=== PATIENT | female | born 1970 | race Caucasian/White ===

== ENCOUNTER 2017-07-27 05:30 | Observation (INO) | payer OTHER ==
[2017-07-27] MEDS ORDERED: ASPIRIN 81 MG PO STA (05:47)
[2017-07-27] MEDS ORDERED: NITROGLYCERIN OINT 1 INCH/GM PACKET TOPICAL STA (05:47)
--- NOTE | 2017-07-27 05:51 | ED ---
General Adult HPI - General Source: patient, RN notes reviewed Mode of arrival: ambulatory Limitations: no limitations <Luca Finn - Last Filed: 07/27/17 06:56> <Lawrence Oropeza - Last Filed: 07/27/17 07:55> - General Chief complaint: Chest Pain Stated complaint: chest pain Time Seen by Provider: 07/27/17 05:30 - History of Present Illness Initial comments: This is a 46 her old female presents emergency department with past medical history significant for smoking. Patient comes in today complaining of chest pain. Patient states a few minutes before 5:00 this morning she woke up and felt significant chest pressure. Patient states the pain does not radiate anywhere it appears to be a little more on the right side than the left. Patient states she is mildly short of breath. Patient states taking a deep breath increases the pain. Patient denies any diaphoretic episodes. Patient states she has no abdominal pain there's no nausea vomiting or diarrhea. Patient denies any recent fever chills or cough. She states she is adopted so she does not know if she has any family history. Patient denies lightheadedness dizziness or near syncopal episode. Patient states the chest pain continues at this time. (Luca Finn) - Related Data Home Medications Medication Instructions Recorded Confirmed Multivitamin [Multivitamins Adult 2 tab PO DAILY 09/28/15 07/27/17 Gummies] Allergies Allergy/AdvReac Type Severity Reaction Status Date / Time codeine Allergy Severe Rash/Hives Verified 07/27/17 07:43 Penicillins Allergy Rash/Hives Verified 07/27/17 07:43 Review of Systems ROS Other: All systems not noted in ROS Statement are negative. <Luca Finn - Last Filed: 07/27/17 06:56> ROS Other: All systems not noted in ROS Statement are negative. <Lawrence Oropeza - Last Filed: 07/27/17 07:55> ROS Statement: Those systems with pertinent positive or pertinent negative responses have been documented in the HPI. Past Medical History Past Medical History: COPD, GERD/Reflux Additional Past Medical History / Comment(s): constipation, uterine fibroids, heavy and painful menses,urinary frequency,hx anemia. OB history: 4 previous vaginal deliveries History of Any Multi-Drug Resistant Organisms: MRSA Date of last positivie culture/infection: ?2008 MDRO Source:: lower abd scratch Past Surgical History: Hysterectomy, Orthopedic Surgery, Tubal Ligation Additional Past Surgical History / Comment(s): ORIF lt hand and wrist Past Anesthesia/Blood Transfusion Reactions: Motion Sickness Additional Past Anesthesia/Blood Transfusion Reaction / Comment(s): unk family hx, no hx blood transfusion Past Psychological History: Anxiety Smoking Status: Current every day smoker Past Alcohol Use History: Occasional Past Drug Use History: Marijuana - Past Family History Father History Unknown: Yes Additional Family Medical History / Comment(s): adopted Mother History Unknown: Yes Additional Family Medical History / Comment(s): adopted <Luca Finn - Last Filed: 07/27/17 06:56> General Exam Limitations: no limitations <Luca Finn - Last Filed: 07/27/17 06:56> <Lawrence Oropeza - Last Filed: 07/27/17 07:55> - General Exam Comments Initial Comments: GENERAL: Patient is well-developed and well-nourished. Patient is nontoxic and well- hydrated and is in mild distress. ENT: Neck is soft and supple. No significant lymphadenopathy is noted. Neck has full range of motion without eliciting any pain. EYES: The sclera were anicteric and conjunctiva were pink and moist. Extraocular movements were intact and pupils were equal round and reactive to light. Eyelids were unremarkable. PULMONARY: Unlabored respirations. Good breath sounds bilaterally. No audible rales rhonchi or wheezing was noted. CARDIOVASCULAR: There is a regular rate and rhythm without any murmurs gallops or rubs. ABDOMEN: Soft and nontender with normal bowel sounds. No palpable organomegaly was noted. There is no palpable pulsatile mass. SKIN: Skin is clear with no lesions or rashes and otherwise unremarkable. NEUROLOGIC: Patient is alert and oriented x3. Cranial nerves II through XII are grossly intact. Motor and sensory are also intact. Normal speech, volume and content. Symmetrical smile. MUSCULOSKELETAL Normal extremities with adequate strength and full range of motion. No lower extremity swelling or edema. No calf tenderness. LYMPHATICS: No significant lymphadenopathy is noted PSYCHIATRIC: Normal psychiatric evaluation. (Luca Finn) Vital Signs 07/27/17 07/27/17 05:31 06:56 Temperature 97.2 F L Pulse Rate 83 Respiratory 16 20 Rate Blood Pressure 127/91 Blood Pressure 127/64 [Left Arm] Blood Pressure 131/85 [Right Arm] O2 Sat by Pulse 97 99 Oximetry EKG Findings - EKG Comments: EKG Findings:: EKG obtained at 0702 normal sinus rhythm, rate of 68, RI interval 150, QRS duration 68, QTC 435, no significant change compared to previous EKG, no ST segment elevation or depression. <Lawrence Oropeza - Last Filed: 07/27/17 07:55> Medical Decision Making - Lab Data Result diagrams: 07/27/17 05:40 07/27/17 05:40 <Luca Finn - Last Filed: 07/27/17 06:56> - Lab Data Result diagrams: 07/27/17 05:40 07/27/17 05:40 <Lawrence Oropeza - Last Filed: 07/27/17 07:55> - Medical Decision Making EKG shows normal sinus rhythm at 76 bpm RI interval is 128 QRS is 64 QT interval 378 QTC is 425. Patient's EKG shows no ST segment elevation or depression or T wave abnormalities are noted. Dr. Oropeza will be taking over the care of this patient at 7 AM (Luca Finn) CT angiography pending at the time of sign out, this is negative for PE, there is a 1 cm pulmonary nodule, suspect granuloma and 1.4; hepatic lesion. These results are conveyed to the patient for 6 months follow-up. No findings to explain the patient's pain. Patient will be placed in observation for serial cardiac enzymes and cardiology consult. (Lawrence Oropeza) - Lab Data Lab Results 07/27/17 07/27/17 07/27/17 Range/Units 05:40 05:40 05:40 WBC 16.1 H (3.8-10.6) k/uL RBC 5.01 (3.80-5.40) m/uL Hgb 16.0 (11.4-16.0) gm/dL Hct 49.9 H (34.0-46.0) % MCV 99.6 (80.0-100.0) fL MCH 32.0 (25.0-35.0) pg MCHC 32.1 (31.0-37.0) g/dL RDW 13.1 (11.5-15.5) % Plt Count 356 (150-450) k/uL Neutrophils % 66 % Lymphocytes % 21 % Monocytes % 4 % Eosinophils % 7 % Basophils % 0 % Neutrophils # 10.7 H (1.3-7.7) k/uL Lymphocytes # 3.4 (1.0-4.8) k/uL Monocytes # 0.7 (0-1.0) k/uL Eosinophils # 1.2 H (0-0.7) k/uL Basophils # 0.1 (0-0.2) k/uL PT (9.0-12.0) sec INR (<1.2) APTT (22.0-30.0) sec D-Dimer (<0.60) mg/L FEU Sodium 142 (137-145) mmol/L Potassium 4.3 (3.5-5.1) mmol/L Chloride 106 (98-107) mmol/L Carbon Dioxide 22 (22-30) mmol/L Anion Gap 14 mmol/L BUN 16 (7-17) mg/dL Creatinine 0.80 (0.52-1.04) mg/dL Est GFR (CKD-EPI)AfAm >90 (>60 ml/min/1.73 sqM) Est GFR (CKD-EPI)NonAf 89 (>60 ml/min/1.73 sqM) Glucose 100 H (74-99) mg/dL Calcium 9.9 (8.4-10.2) mg/dL Magnesium 2.1 (1.6-2.3) mg/dL Total Bilirubin 0.2 (0.2-1.3) mg/dL AST 19 (14-36) U/L ALT 29 (9-52) U/L Alkaline Phosphatase 64 (38-126) U/L Total Creatine Kinase 55 (30-135) U/L CK-MB (CK-2) 0.3 (0.0-2.4) ng/mL CK-MB (CK-2) Rel Index 0.5 Troponin I <0.012 (0.000-0.034) ng/mL Total Protein 7.2 (6.3-8.2) g/dL Albumin 4.3 (3.5-5.0) g/dL 07/27/17 07/27/17 Range/Units 05:40 05:40 WBC (3.8-10.6) k/uL RBC (3.80-5.40) m/uL Hgb (11.4-16.0) gm/dL Hct (34.0-46.0) % MCV (80.0-100.0) fL MCH (25.0-35.0) pg MCHC (31.0-37.0) g/dL RDW (11.5-15.5) % Plt Count (150-450) k/uL Neutrophils % % Lymphocytes % % Monocytes % % Eosinophils % % Basophils % % Neutrophils # (1.3-7.7) k/uL Lymphocytes # (1.0-4.8) k/uL Monocytes # (0-1.0) k/uL Eosinophils # (0-0.7) k/uL Basophils # (0-0.2) k/uL PT 9.6 (9.0-12.0) sec INR 1.0 (<1.2) APTT 26.9 (22.0-30.0) sec D-Dimer 0.42 (<0.60) mg/L FEU Sodium (137-145) mmol/L Potassium (3.5-5.1) mmol/L Chloride (98-107) mmol/L Carbon Dioxide (22-30) mmol/L Anion Gap mmol/L BUN (7-17) mg/dL Creatinine (0.52-1.04) mg/dL Est GFR (CKD-EPI)AfAm (>60 ml/min/1.73 sqM) Est GFR (CKD-EPI)NonAf (>60 ml/min/1.73 sqM) Glucose (74-99) mg/dL Calcium (8.4-10.2) mg/dL Magnesium (1.6-2.3) mg/dL Total Bilirubin (0.2-1.3) mg/dL AST (14-36) U/L ALT (9-52) U/L Alkaline Phosphatase (38-126) U/L Total Creatine Kinase (30-135) U/L CK-MB (CK-2) (0.0-2.4) ng/mL CK-MB (CK-2) Rel Index Troponin I (0.000-0.034) ng/mL Total Protein (6.3-8.2) g/dL Albumin (3.5-5.0) g/dL Disposition <Luca Finn - Last Filed: 07/27/17 06:56> Is patient prescribed a controlled substance at d/c from ED?: No Decision to Admit Reason: Admit from EC Decision Date: 07/27/17 Decision Time: 07:55 <Lawrence Oropeza - Last Filed: 07/27/17 07:55> Clinical Impression: Chest pain Disposition: ADMITTED IP TO THIS HOSP Condition: Stable Referrals: German De La Cruz DO [Primary Care Provider] - 1-2 days
[2017-07-27 06:04] LABS: Basophils # (A) 0.1 k/uL (0-0.2); Basophils % (A) 0 %; Eosinophils # (A) 1.2 k/uL (0-0.7); Eosinophils % (A) 7 %; HCT 49.9 % (34.0-46.0); Lymphocytes # (A) 3.4 k/uL (1.0-4.8); Lymphocytes % (A) 21 %; MCHC 32.1 g/dL (31.0-37.0); MCV 99.6 fL (80.0-100.0); Mean Platelet Volume 6.7; Monocytes # (A) 0.7 k/uL (0-1.0); Monocytes % (A) 4 %; Neutrophils # (A) 10.7 k/uL (1.3-7.7); Neutrophils % (A) 66 %; Platelet Count 356 k/uL (150-450); RBC 5.01 m/uL (3.80-5.40); RDW 13.1 % (11.5-15.5); WBC 16.1 k/uL (3.8-10.6)
[2017-07-27 06:12] LABS: Partial Thromboplastin Time 26.9 sec (22.0-30.0); Prothrombin Time 9.6 sec (9.0-12.0)
[2017-07-27 06:15] LABS: ALT 29 U/L (9-52); AST 19 U/L (14-36); Albumin 4.3 g/dL (3.5-5.0); Alkaline Phosphatase 64 U/L (38-126); Anion Gap 14 mmol/L; Blood Urea Nitrogen 16 mg/dL (7-17); Calcium 9.9 mg/dL (8.4-10.2); Carbon Dioxide 22 mmol/L (22-30); Chloride 106 mmol/L (98-107); Glucose 100 mg/dL (74-99); Magnesium 2.1 mg/dL (1.6-2.3); Potassium 4.3 mmol/L (3.5-5.1); Sodium 142 mmol/L (137-145); Total Bilirubin 0.2 mg/dL (0.2-1.3); Total Protein 7.2 g/dL (6.3-8.2)
[2017-07-27 06:29] LABS: Creatine Kinase 55 U/L (30-135)
[2017-07-27 06:42] LABS: Creatine Kinase MB 0.3 ng/mL (0.0-2.4); Troponin I <0.012 ng/mL (0.000-0.034)
--- NOTE | 2017-07-27 06:50 | XR ---
EXAMINATION TYPE: XR chest 2V DATE OF EXAM: 07/27/2017 COMPARISON: 09/28/2015 HISTORY: Chest pain TECHNIQUE: Frontal and lateral views of the chest are obtained. FINDINGS: Heart and mediastinum are normal. Lungs are clear. Diaphragm is normal. Bony thorax appear s normal. IMPRESSION: Normal chest. No change.
[2017-07-27] MEDS ORDERED: KETOROLAC 60 MG/2 ML VIAL IVP STA (06:51)
[2017-07-27] MEDS ORDERED: RX INFO: IV CONTRAST WAS GIVEN 1 EACH MISC MISCELLANE PRN (06:55)
--- NOTE | 2017-07-27 07:48 | CT ---
EXAMINATION TYPE: CT chest angio for PE DATE OF EXAM: 07/27/2017 COMPARISON: NONE HISTORY: 46-year-old female Chest pain TECHNIQUE: Contiguous axial scanning of the chest performed with IV Contrast, patient injected with 5 9 mL of Isovue 370. Coronal/sagittal MIP reconstructions performed. CT DLP: 136.5 mGycm Automated exposure control for dose reduction was used. FINDINGS: Heart is normal size without pericardial effusion. Borderline ectatic ascending aorta 3.6 cm. Conventional arch vessel branching anatomy. Prominent but nonenlarged 8mm superior right mediastinal lymph node. Borderline enlarged 1 cm right h ilar lymph node. Satisfactory opacification of the pulmonary arterial system without evidence for pulmonary embolus. Mild diffuse bronchial wall thickening and mild upper lobe centrilobular emphysema. Prominent depende nt atelectasis along the posterior lungs. There is a 1 cm nodule at the posteromedial right lung base with central calcification, likely a calc ified granuloma. This can be reassessed in 6 months time. No consolidation or pleural effusion. Tiny hiatal hernia. 1.4 cm hypodense lesion right hepatic dome is indeterminate, probably a cyst. Bones: No osseous destructive process. IMPRESSION: 1. NO EVIDENCE FOR PULMONARY EMBOLUS. 2. COPD WITH MILD EMPHYSEMA. 3. A 1 CM RIGHT BASILAR PULMONARY NODULE CONTAINS A CENTRAL CALCIFICATION. SUSPECT A PARTIALLY CALCIF IED GRANULOMA. 6 MONTH FOLLOW-UP CT RECOMMENDED TO REASSESS. 4. INDETERMINATE 1.4 CM LESION IN THE RIGHT HEPATIC DOME IS SUSPECTED TO REPRESENT A CYST AND CAN ALS O BE REASSESSED AT THE PATIENT'S FOLLOW-UP.
[2017-07-27] MEDS ORDERED: ONDANSETRON 4 MG/2 ML VIAL IVP PRN (07:52)
[2017-07-27] MEDS ORDERED: NALOXONE 0.4 MG/ML 1 ML VIAL IV PRN (07:52)
[2017-07-27] MEDS: IBUPROFEN 400 MG TAB PO PRN ×2 (08:57→16:18)
[2017-07-27 11:16] VITALS: BMI 22.8
[2017-07-27 12:08] LABS: Creatine Kinase 45 U/L (30-135)
[2017-07-27 12:20] LABS: Creatine Kinase MB <0.2 ng/mL (0.0-2.4); Troponin I <0.012 ng/mL (0.000-0.034)
--- NOTE | 2017-07-27 13:49 | HP ---
HISTORY AND PHYSICAL DATE OF ADMISSION: July 27, 2017. DATE OF SERVICE: 07/27/17 PRESENTING COMPLAINT: Chest pressure. HISTORY OF PRESENTING COMPLAINT: Pleasant 46 -year-old patient that is here with her . Follows with Dr. De La Cruz. The patient in the past did have GERD, resolved. Anxiety that is well controlled. The patient around 4 a.m. this morning, felt a heaviness across the chest, felt like a dull pressure. There was no fever, no cough, no shortness of breath, but did hurt a little bit with deep breathing. Some nausea was present. Denies any swelling of the legs. PE was ruled out in the ER. The patient does smoke occasionally. Was admitted because of the chest pain. The patient is relatively active with no other major medical problems. REVIEW OF SYSTEMS: CONSTITUTIONAL: None. HEENT: None. RESPIRATORY: None. CARDIOVASCULAR: As above. Gastrointestinal as above. Genitourinary: None. Musculoskeletal none. Dermatological and hematologic, lymphatic none. Psychiatry none. Neurological none. PAST MEDICAL HISTORY: GERD, corrected; anemia. PAST SURGICAL HISTORY: Hysterectomy, orthopedic surgery, tubal ligation, ORIF of the left hand and wrist, four vaginal deliveries. SOCIAL HISTORY: The patient smokes occasionally. . Alcohol rarely. FAMILY HISTORY: Patient is adopted. HOME MEDICATIONS: Multivitamin 2 tablets p.o. daily. ALLERGIES: CODEINE AND PENICILLIN. PHYSICAL EXAMINATION: Vital signs on presentation, temperature 97.2 pulse 83, respiratory rate 16, blood pressure 127/91, pulse ox 97% on room air. General appearance: Average built. Sitting up comfortable. EYES: Pupils are equal. Conjunctivae normal. HEENT external appearance of nose and ears normal. Oral cavity normal. Neck JVD not raised. Mass not palpable. Respiratory effort lungs are clear. Cardiovascular 1st and 2nd sounds normal. No edema. ABDOMEN: Soft, nontender. Liver and spleen not palpable. Lymphatics: No lymph nodes palpable in the neck and axilla. PSYCHIATRY: Alert and oriented x3. Mood and affect normal. Neurological: Pupils are equal. Cranial nerves grossly intact. Power and sensation grossly: Intact. Musculoskeletal: Patient has got tenderness around the costochondral junction, especially on the right side. INVESTIGATIONS: White count 16.1, hemoglobin, potassium 4.3. Troponin times two negative. EKG normal sinus rhythm. Chest x-ray, normal chest. Chest CTA shows pulmonary nodule 1 cm with central calcification. No PE. ASSESSMENT: 1. Anterior chest wall pain with reproducible pain at the costochondral junctions, most likely acute costochondritis. Will get a Cardiology opinion. 2. Mild chronic nicotine dependence, patient does smoke cigarettes occasionally. PLAN: Patient advised against smoking. Once cardiology causes ruled out, will give patient anti-inflammatory. Care was discussed with the patient. at the bedside. Questions were answered. Cardiology was consulted. Copy to Dr. De La Cruz. MMODL / IJN: [id number] /
--- NOTE | 2017-07-27 15:15 | P.CRDCN ---
History of Present Illness History of present illness: Mrs. Devine is a pleasant 46 showed female past medical history significant for gastroesophageal reflux disease, anxiety and chronic tobacco abuse. 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 We've been asked to see her in consultation for complaints of chest pain. She states she woke up around 4:00 this morning with a tight pain in the midsternal region she denies radiation to the arms back neck or jaw. She felt as though she was mildly short of breath more so that her worse when she took a deep breath. She denies associated nausea, palpitations, dizziness, vomiting or diaphoresis. The pain persisted for about an hour before she decided to come in for evaluation. She still complains of a dull pain that is worse with movement and was relieved just by sitting still and not moving around or taking a deep breath. EKG on arrival reveals sinus mechanism with no acute ST or T wave abnormalities noted. Chest x-ray negative for acute cardiopulmonary process. Laboratory data reviewed, WBC 16.1, hemoglobin 16.0, platelets 356, d-dimer 0.42, sodium 142, potassium 4.3, magnesium 2.1, creatinine 0.8, cardiac enzymes negative 2. CT and chest reveals no evidence of pulmonary embolism with evidence of COPD with a pulmonary nodule recommend 6 month follow-up. She takes no daily medications there are no old records to review. Review of Systems At the time of my exam: CONSTITUTIONAL: Denies fever. Denies chills. EYES: Denies blurred vision. Denies vision changes. Denies eye pain. EARS, NOSE, MOUTH & THROAT: Denies headache. Denies sore throat. Denies ear pain. CARDIOVASCULAR: Complains of pleuritic chest pain worse with movement and deep inspiration. Denies shortness of breath. Denies orthopnea. Denies PND. Denies palpitations. RESPIRATORY: Denies cough. GASTROINTESTINAL: Denies abdominal pain. Denies diarrhea. Denies constipation. Denies nausea. Denies vomiting. MUSCULOSKELETAL: Denies myalgias. INTEGUMENTARY: Denies pruitis. Denies rash. NEUROLOGIC: Denies numbness. Denies tingling. Denies weakness. PSYCHIATRIC: Denies anxiety. Denies depression. ENDOCRINE: Denies fatigue. Denies weight change. Denies polydipsia. Denies polyurina. GENITOURINARY: Denies burning, hematuria or urgency with micturation. HEMATOLOGIC: Denies history of anemia. Denies bleeding. Past Medical History Past Medical History: GERD/Reflux Additional Past Medical History / Comment(s): constipation, uterine fibroids, heavy and painful menses,urinary frequency,hx anemia. OB history: 4 previous vaginal deliveries History of Any Multi-Drug Resistant Organisms: MRSA Date of last positivie culture/infection: ?2008 MDRO Source:: lower abd scratch Past Surgical History: Hysterectomy, Orthopedic Surgery, Tubal Ligation Additional Past Surgical History / Comment(s): ORIF lt hand and wrist Past Anesthesia/Blood Transfusion Reactions: Motion Sickness Additional Past Anesthesia/Blood Transfusion Reaction / Comment(s): unk family hx, no hx blood transfusion Past Psychological History: Anxiety Smoking Status: Current every day smoker Past Alcohol Use History: Occasional Additional Past Alcohol Use History / Comment(s): started smoking 1990 1 pack per 3 days, now smoking 3 cigarettes or less per day Past Drug Use History: Marijuana - Past Family History Father History Unknown: Yes Additional Family Medical History / Comment(s): adopted Mother History Unknown: Yes Additional Family Medical History / Comment(s): adopted Medications and Allergies Home Medications Medication Instructions Recorded Confirmed Type Multivitamin [Multivitamins Adult 2 tab PO DAILY 09/28/15 07/27/17 History Gummies] Allergies Allergy/AdvReac Type Severity Reaction Status Date / Time codeine Allergy Severe Rash/Hives Verified 07/27/17 07:43 Penicillins Allergy Rash/Hives Verified 07/27/17 07:43 Physical Exam Vitals: Vital Signs Temp Pulse Pulse Pulse Resp BP BP 07/27/17 12:00 98.2 F 94 16 07/27/17 10:14 97.6 F 81 16 07/27/17 09:59 98.3 F 78 16 109/66 07/27/17 08:59 82 16 07/27/17 06:56 20 127/64 07/27/17 05:31 97.2 F L 83 16 127/91 BP Pulse Ox 07/27/17 12:00 91/69 96 07/27/17 10:14 112/77 97 07/27/17 09:59 100 07/27/17 08:59 105/73 96 07/27/17 06:56 131/85 99 07/27/17 05:31 97 Intake and Output 07/27/17 07/27/17 07/27/17 06:59 14:59 22:59 Intake Total 250 Balance 250 Intake: Oral 250 Other: Voiding Method Toilet Weight 50.802 kg 54.9 kg Blood pressure 91/69 heart rate 94 afebrile maintaining oxygen saturation on room air GENERAL: This is a 46-year-old female in no apparent distress at the time of my examination. HEENT: Head is atraumatic, normocephalic. Pupils are equal, round. Sclerae anicteric. Conjunctivae are clear. Mucous membranes of the mouth are moist. Neck is supple. There is no jugular venous distention. No carotid bruit is heard. LUNGS: Clear to auscultation no wheezes, rales or rhonchi. No chest wall tenderness is noted on palpation or with deep breathing. HEART: Regular rate and rhythm without murmurs, rubs or gallops. S1 and S2 heard. ABDOMEN: Soft, nontender. Bowel sounds are heard. No organomegaly noted. EXTREMITIES: No evidence of peripheral edema and no calf tenderness noted. VASCULAR: Radial and dorsalis pedis pulses palpated, no evidence of clubbing. NEUROLOGIC: Patient is awake, alert and oriented x3. Results 07/27/17 05:40 07/27/17 05:40 Cardiac Enzymes 07/27/17 07/27/17 07/27/17 Range/Units 05:40 05:40 11:27 AST 19 (14-36) U/L CK-MB (CK-2) 0.3 <0.2 (0.0-2.4) ng/mL Troponin I <0.012 <0.012 (0.000-0.034) ng/mL Coagulation 07/27/17 Range/Units 05:40 PT 9.6 (9.0-12.0) sec APTT 26.9 (22.0-30.0) sec CBC 07/27/17 Range/Units 05:40 WBC 16.1 H (3.8-10.6) k/uL RBC 5.01 (3.80-5.40) m/uL Hgb 16.0 (11.4-16.0) gm/dL Hct 49.9 H (34.0-46.0) % Plt Count 356 (150-450) k/uL Comprehensive Metabolic Panel 07/27/17 Range/Units 05:40 Sodium 142 (137-145) mmol/L Potassium 4.3 (3.5-5.1) mmol/L Chloride 106 (98-107) mmol/L Carbon Dioxide 22 (22-30) mmol/L BUN 16 (7-17) mg/dL Creatinine 0.80 (0.52-1.04) mg/dL Glucose 100 H (74-99) mg/dL Calcium 9.9 (8.4-10.2) mg/dL AST 19 (14-36) U/L ALT 29 (9-52) U/L Alkaline Phosphatase 64 (38-126) U/L Total Protein 7.2 (6.3-8.2) g/dL Albumin 4.3 (3.5-5.0) g/dL Current Medications Generic Name Dose Route Start Last Admin Trade Name Freq PRN Reason Stop Dose Admin Aspirin 325 mg 07/28/17 09:00 Aspirin PO DAILY ESTEFANIA Ibuprofen 400 mg 07/27/17 07:52 07/27/17 08:57 Motrin PO 400 mg Q6HR PRN Administration Mild Pain or Fever > 100.5 Miscellaneous Information 1 each 07/27/17 06:55 Rx Info: Iv Contrast Was Given MISCELLANE 07/29/17 06:55 DAILY PRN Per Protocol Naloxone HCl 0.2 mg 07/27/17 07:52 Narcan IV Q2M PRN Opioid Reversal Ondansetron HCl 4 mg 07/27/17 07:52 Zofran IVP Q8HR PRN Nausea And Vomiting Intake and Output 07/27/17 07/27/17 07/27/17 06:59 14:59 22:59 Intake Total 250 Balance 250 Intake: Oral 250 Other: Voiding Method Toilet Weight 50.802 kg 54.9 kg Patient Weight 07/28/17 06:59 Weight 54.9 kg 07/27/17 05:40 07/27/17 05:40 Assessment and Plan Assessment: ASSESSMENT 1. Chest pain, atypical. Pleuritic in nature. 2. Gastroesophageal reflux disease 3. Anxiety 4. Chronic nicotine dependence PLAN Obtain 2-D echocardiogram and Doppler study to assess cardiac structure and function. Continue to obtain serial cardiac enzymes to rule out an acute coronary event. Thank you kindly for this consultation. Nurse Practitioner note has been reviewed, I agree with a documented findings and plan of care. Patient was seen and examined.
[2017-07-27] MEDS ORDERED: ACETAMINOPHEN TAB 325 MG TAB PO PRN (15:50)
[2017-07-27 18:34] LABS: Creatine Kinase 40 U/L (30-135)
[2017-07-27 18:46] LABS: Creatine Kinase MB <0.2 ng/mL (0.0-2.4); Troponin I <0.012 ng/mL (0.000-0.034)
--- NOTE | 2017-07-27 18:47 | ECHOF ---
Referral Reason:Chest pain MEASUREMENTS -------- HEIGHT: 154.9 cm WEIGHT: 54.9 kg BP: 91/69 RVIDd: 2.8 cm (< 3.3) IVSd: 0.8 cm (0.6 - 1.1) LVIDd: 3.3 cm (3.9 - 5.3) LVPWd: 1.1 cm (0.6 - 1.1) IVSs: 1.4 cm LVIDs: 2.4 cm LVPWs: 1.4 cm LA Diam: 2.4 cm (2.7 - 3.8) LAESV Index (A-L): 14.98 ml/m Ao Diam: 3.2 cm (2.0 - 3.7) AV Cusp: 1.7 cm (1.5 - 2.6) MV EXCURSION: 12.755 mm (> 18.000) MV EF SLOPE: 79 mm/s (70 - 150) EPSS: 0.4 cm MV E Bruno: 0.72 m/s MV DecT: 208 ms MV A Bruno: 0.72 m/s MV E/A Ratio: 1.00 AR PHT: 717 ms FINDINGS -------- Sinus rhythm. This was a technically good study. The left ventricular size is normal. Left ventricular wall thickness is normal. Overall left vent ricular systolic function is normal with, an EF between 55 - 60 %. The right ventricle is normal in size. Normal LA size by volume 22+/-6 ml/m2. The right atrium is normal in size. There is mild aortic regurgitation. The mitral valve is normal. No mitral regurgitation. Trace tricuspid regurgitation present. The pulmonic valve was not well visualized. The aortic root size is normal. Normal inferior vena cava with normal inspiratory collapse consistent with estimated right atrial pre ssure of 5 mmHg. There is no pericardial effusion. CONCLUSIONS -------- 1. Sinus rhythm. 2. This was a technically good study. 3. The left ventricular size is normal. 4. Left ventricular wall thickness is normal. 5. Overall left ventricular systolic function is normal with, an EF between 55 - 60 %. 6. The right ventricle is normal in size. 7. Normal LA size by volume 22+/-6 ml/m2. 8. The right atrium is normal in size. 9. There is mild aortic regurgitation. 10. The mitral valve is normal. 11. No mitral regurgitation. 12. Trace tricuspid regurgitation present. 13. The pulmonic valve was not well visualized. 14. The aortic root size is normal. 15. Normal inferior vena cava with normal inspiratory collapse consistent with estimated right atrial pressure of 5 mmHg. 16. There is no pericardial effusion. BUSINESS CONTROL SPECIALIST: Domenica Mackey RDCS
[2017-07-28] MEDS ORDERED: ASPIRIN 325 MG TAB PO SCH (09:00)
--- NOTE | 2017-07-28 10:22 | P.PN ---
Subjective Progress Note Date: 07/28/17 Principal diagnosis: chest pain This is a 46-year-old female patient with history of smoking presented to the hospital was atypical chest discomfort and was ruled out for acute coronary event. She underwent an echocardiogram and that revealed normal LV function without any significant valvular abnormalities. The EKG showed sinus rhythm with nonspecific changes only. The cardiac enzymes were checked and came in to be unremarkable. I am going to proceed with a stress test, stress echocardiogram to rule out any severe underlying coronary artery disease. Objective - Vital Signs Vital signs: Vital Signs Temp 97.4 F L 07/28/17 07:46 Pulse 75 07/28/17 07:46 Resp 18 07/28/17 07:46 BP 101/66 07/28/17 07:46 Pulse Ox 95 07/28/17 07:46 Intake & Output 07/27/17 07/28/17 07/28/17 18:59 06:59 18:59 Intake Total 250 Balance 250 Weight 54.9 kg Intake: Oral 250 Other: Voiding Method Toilet Toilet - Constitutional General appearance: Present: no acute distress - Respiratory Respiratory: bilateral: CTA - Cardiovascular Rhythm: regular Heart sounds: normal: S1, S2 - Labs CBC & Chem 7: 07/27/17 05:40 07/27/17 05:40 Assessment and Plan Assessment: assessment #1 atypical chest discomfort #2 history of smoking Plan #1 the patient was ruled out for acute coronary event #2 I will proceed with a stress echocardiogram.
[2017-07-28 12:14] VITALS: RESP 16
[2017-07-28 16:17] VITALS: PULSE 70; TEMP 97.9
[2017-07-28 19:23] VITALS: BP 100/59
--- NOTE | 2017-07-29 06:55 | DS ---
DISCHARGE SUMMARY DATE OF ADMISSION: 07/27/17. DATE OF DISCHARGE: July 28, 2017. FINAL DIAGNOSES: 1. Anterior chest wall pain likely acute costochondritis. 2. Chronic nicotine dependence, patient is a cigarette smoker. HOSPITAL COURSE: This patient presented with chest pain, was tender in the right costochondral junction. Did undergo a stress test by Dr. Guajardo. Nurse called me to inform me that the stress test was negative. 2D echocardiogram was unremarkable. Care had been discussed with the patient. On examination on presentation, patient did have some tenderness in the right costochondral junction. Lungs are clear. DISCHARGE MEDICATIONS: 1. Multivitamins. 2. The patient will take Tylenol p.r.n. FOLLOWUP: Follow up with Dr. De La Cruz in 2 days. Follow up with Dr. Guajardo in 3 weeks and follow up with Dr. Carter in 2 weeks for a pulmonary nodule. Copy to Dr. De La Cruz. MMODL / IJN: [id number] /
--- NOTE | 2017-07-29 12:37 | ECHOS ---
STRESS ECHOCARDIOGRAM DATE OF SERVICE: 07/28/2017 INDICATION: Chest pain. MEDICATIONS: BASELINE HEART RATE: 77 BASELINE BLOOD PRESSURE: 95/81 MAXIMUM HEART RATE: 151 MAXIMUM BLOOD PRESSURE: 178/83 85% MPHR: 148 100% MPHR: 174 METS: 12 MAXIMUM STAGE REACHED: III TOTAL EXERCISE TIME: 10:53 CLINICAL INFORMATION: STRESS DATA: Pretesting physical examination showed a heart rate of 77, pressure is 95/81 mmHg. Baseline EKG showed sinus mechanism. The patient exercised on the treadmill according to Manjit protocol for a total of 10 minutes and 53 seconds and achieved 12 of METS. Max heart rate was 151, which is about 86% of maximum predicted heart rate. Maximum blood pressure was 178/83 mmHg. Clinically the patient did not have any symptoms and the EKG did not show any significant or ischemic changes. ECHOCARDIOGRAM IMAGES: Echocardiogram images were performed from parasternal long axis view, parasternal short axis view, apical 4 chambers and apical 2 chamber view. The echocardiogram images showed good augmentation in the left ventricle without any evidence of wall motion abnormalities consistent with ischemia. CONCLUSION: 1. Excellent exercise tolerance. 2. Normal EKG response to exercise. 3. Normal echocardiogram in response to exercise. MMODL / IJN: [id number] /
== END 2017-07-28 21:10 | disposition home or self-care (01) ==
LOC: EC 05:30 → 3OBS 07:52
PROVIDERS: ADMIT Hospitalist; ATTEND Hospitalist
DX: R07.89 Other chest pain (principal); K21.9 Gastro-esophageal reflux disease without esophagitis; J44.9 Chronic obstructive pulmonary disease, unspecified; F41.9 Anxiety disorder, unspecified; R11.0 Nausea; R91.1 Solitary pulmonary nodule; K59.00 Constipation, unspecified; F17.210 Nicotine dependence, cigarettes, uncomplicated; Z86.14 Personal history of Methicillin resistant Staphylococcus aureus infection; Z88.0 Allergy status to penicillin; Z88.5 Allergy status to narcotic agent
CPT/HCPCS: 99285 ×2; 36415; 93005; 93306; 93351; 85379; 80053; 82550; 82553; 83735; 84484; 85025; 85610; 85730; 71046; 71275; G0378 ×2; Q9967

== ENCOUNTER → 2017-11-05 | Outpatient (CLI) | payer OTHER ==
--- NOTE | 2017-11-05 17:09 | FL ---
EXAMINATION TYPE: Left wrist fluoroscopic-guided arthrogram injection. DATE OF EXAM: 11/05/2017 HISTORY: 47-year-old female ulnar impingement syndrome left wrist, left wrist surgery 7 years ago, pa in and deformity. PROCEDURES: 1. Left wrist fluoroscopy. 2. Left wrist arthrogram. TECHNIQUE: The procedure, risks, and alternatives, were discussed with the patient, who requested that javier sommers The consent form was signed, and teach-back occurred. Total fluoroscopy time: 2 minutes 9 seconds. Total images: 23. The site/side of the procedure was marked with a line with participation by the patient. The accompan joana paperwork was verified for consistency. A directed history and physical exam was performed prior to the procedure. Medication reconciliation was performed by ancillary personnel. A critical pause was performed with assisting personnel just pr ior to the procedure, and the patient's identity was confirmed using 2 identifiers. Imaging guidance was utilized to select the precise skin entry point just prior to the procedure vinny g the dorsal aspect of the lateral radioscaphoid joint space.. The left wrist was prepped and draped in the usual sterile fashion and local 1% lidocaine anesthesia was instilled. Under fluoroscopic guidance, a 1 1/2 inch 25 gauge needle was introduced into the dorsal radioscaphoi d joint space and appropriate needle tip position was confirmed after a small amount of contrast inje ction. A mixture of 25% 1% lidocaine, 25% sterile saline, and 50% Isovue-200 IV contrast was prepared. Only 1.5 ml could be injected into the joint space before there was significant resistance on the syringe. Contrast moved promptly away from the needle tip and filled only the radial aspect of the wrist join t capsule. Contrast would not flow toward the ulnar side of the wrist. Because of this, a second injection was performed along the dorsal radiolunate joint. A total of 1.5 mL was injected again, before significant resistance was encountered. The needle was then removed. The patient tolerated the procedure well. There was no immediate complication. After the procedure, the patient's condition was unchanged. Estimated blood loss was minimal. Imaging during and after contrast administration shows no extension into the mid carpal compartment o r into the distal radioulnar joint. [employer] images show impacted, dorsally angulated distal radial fracture with volar plate and screw fixa tion. There is slight positive ulnar variance and chronic ununited fracture fracture fragment of the ulnar styloid process with fragmented metallic sutures. IMPRESSION: 1. Impacted and dorsally angulated healed fracture deformity of the distal radius with volar plate an d screw fixation. Fractured metallic wire at the distal ulna. 2. Technically difficult left wrist arthrogram injection as contrast would not spread throughout the wrist joint despite confirmation of appropriate needle positioning. The radioscaphoid joint space and radiolunate joint spaces were therefore injected separately. 3. Contrast did not extend into either the midcarpal compartment or the distal radioulnar joint.
== END | disposition home or self-care (01) ==
LOC: RADFLMAIN 12:53
PROVIDERS: ATTEND Plastic Surgery
DX: M25.832 Other specified joint disorders, left wrist (principal); Z98.890 Other specified postprocedural states
CPT/HCPCS: 25246; 73115; 73201; J2001; Q9967

== ENCOUNTER → 2018-05-20 | Outpatient (CLI) | payer OTHER ==
--- NOTE | 2018-05-20 13:21 | XR ---
EXAMINATION TYPE: XR elbow limited LT, XR forearm LT DATE OF EXAM: 05/20/2018 CLINICAL HISTORY: M79.602 per order. Pain and swelling for one week left forearm with history of inju ry and surgery 2009. TECHNIQUE: Frontal and lateral images of the left elbow and forearm are obtained. COMPARISON: None FINDINGS: There is no acute fracture/dislocation evident in the left elbow. No abnormal fat pad sig ns are seen. The overlying soft tissue appears unremarkable. Images of left forearm show fixating plate through healed fracture of the mid to distal diaphysis lef t ulna. There is suggestion of old avulsion fracture from the ulnar styloid. There is well-defined jason cency consistent with old removed fixating plate through the distal radial diaphysis. Overlying soft tissue is unremarkable. IMPRESSION: As above.
== END | disposition home or self-care (01) ==
LOC: RADXRMAIN 11:47
PROVIDERS: ATTEND Physician Assistant
DX: S52.602D Unspecified fracture of lower end of left ulna, subsequent encounter for closed fracture with routine healing (principal)

== ENCOUNTER 2018-08-29 13:50 | Emergency (ER) | payer OTHER ==
[2018-08-29 14:02] VITALS: PULSE 96; RESP 18; TEMP 98.1
[2018-08-29] MEDS ORDERED: DIAZEPAM 5 MG TAB PO STA (14:23)
[2018-08-29] MEDS ORDERED: BUPIVACAINE (PF) 0.75% 10 ML VIAL SQ ONE (14:23)
--- NOTE | 2018-08-29 14:27 | ED ---
Back Pain HPI - General Chief Complaint: Back Pain/Injury Stated Complaint: back pain Time Seen by Provider: 08/29/18 14:11 Source: patient Limitations: no limitations - History of Present Illness Initial Comments: Patient is a 48-year-old female who presents with a chief complaint of nontraumatic lower back pain. This is been going on for 3 days. Started suddenly and the patient cannot identify an inciting incident. She states that it feels like a cramp and spasm in her bilateral lower back. She states it is worse on the left. She states that most comfortable position is standing. She has pain with flexion at the hip. There is tenderness palpation lower back bilaterally. She denies any bowel or bladder dysfunction, she denies any dysuria or frequency. No chest pain, shortness of breath, nausea or vomiting. - Related Data Home Medications Medication Instructions Recorded Confirmed Multivitamin [Multivitamins Adult 2 tab PO DAILY 09/28/15 07/27/17 Gummies] Previous Rx's Medication Instructions Recorded Albuterol Inhaler [Ventolin Hfa 2 puff INHALATION Q4HR PRN #1 06/06/18 Inhaler] inhaler Oseltamivir [Tamiflu] 75 mg PO Q12HR #9 cap 06/06/18 Diazepam [Valium] 5 mg PO BID #4 tab 08/29/18 Ibuprofen [Motrin] 800 mg PO TID #30 tab 08/29/18 Allergies Allergy/AdvReac Type Severity Reaction Status Date / Time codeine Allergy Severe Rash/Hives Verified 08/29/18 14:02 Penicillins Allergy Rash/Hives Verified 08/29/18 14:02 Review of Systems ROS Statement: Those systems with pertinent positive or pertinent negative responses have been documented in the HPI. ROS Other: All systems not noted in ROS Statement are negative. Constitutional: Denies: fever Musculoskeletal: Reports: back pain Past Medical History Past Medical History: GERD/Reflux Additional Past Medical History / Comment(s): constipation, uterine fibroids,heavy and painful menses,urinary frequency,hx anemia. OB history: 4 previous vaginal deliveries History of Any Multi-Drug Resistant Organisms: MRSA Date of last positivie culture/infection: ?2008 MDRO Source:: lower abd scratch Past Surgical History: Hysterectomy, Orthopedic Surgery, Tubal Ligation Additional Past Surgical History / Comment(s): ORIF lt hand and wrist Past Anesthesia/Blood Transfusion Reactions: Motion Sickness Additional Past Anesthesia/Blood Transfusion Reaction / Comment(s): unk family hx, no hx blood transfusion Past Psychological History: Anxiety Smoking Status: Current every day smoker Past Alcohol Use History: Occasional Past Drug Use History: Marijuana - Past Family History Father History Unknown: Yes Additional Family Medical History / Comment(s): adopted Mother History Unknown: Yes Additional Family Medical History / Comment(s): adopted General Exam Limitations: no limitations General appearance: alert, in no apparent distress Head exam: Present: atraumatic, normocephalic Eye exam: Present: normal appearance ENT exam: Present: normal exam Neck exam: Present: normal inspection Respiratory exam: Present: normal lung sounds bilaterally. Absent: respiratory distress, wheezes Cardiovascular Exam: Present: regular rate, normal rhythm GI/Abdominal exam: Present: soft. Absent: distended, tenderness, guarding Rectal exam: Present: deferred Extremities exam: Present: normal inspection Back exam: Present: tenderness, muscle spasm, paraspinal tenderness, other (Duy downing has muscle spasm at the sacroiliac junctions bilaterally, there are chronic tissue texture changes in the left side that are tender to deep palpation.). Absent: full ROM, CVA tenderness (R), CVA tenderness (L), vertebral tenderness Neurological exam: Present: alert, oriented X3, CN II-XII intact, normal gait (Patient has a normal gait, normal balance, able to bear weight without assistance.), reflexes normal. Absent: motor sensory deficit Psychiatric exam: Present: normal affect, normal mood Skin exam: Present: warm, dry, intact Course Vital Signs 08/29/18 13:57 Temperature 98.1 F Pulse Rate 96 Respiratory 18 Rate Blood Pressure 109/76 O2 Sat by Pulse 95 Oximetry Medical Decision Making - Medical Decision Making Patient presents with a chief complaint of back pain. On initial evaluation, vitals are stable, patient is in no acute distress. She denies any bowel or bladder dysfunction, she does not use IV drugs, no fever, very little concern at this point for life-threatening etiology such as cauda equina syndrome, or spinal abscess. Further muscular skeletal pain in nature that has not any identifiable inciting incident. Patient will be evaluated with x-rays of the pelvis and lumbar spine. She was given 5 mg of Valium by mouth, we will check a urinalysis. 3:37 PM Urinalysis is not showing any evidence of infection. xrays of the lumbar spine and pelvis show no acute process. Patient feeling improved after a dose of Valium. She was given bilateral trigger point injections with moderate degree improvement of her symptoms. She is eminently without assistance. This time, patient stable for discharge. She is given a prescription for Valium and Motrin. She was instructed to follow up with primary care 12 days, return to the ED if symptoms worsen or change. - Lab Data Lab Results 08/29/18 Range/Units 14:40 Urine Color Yellow Urine Appearance Clear (Clear) Urine pH 5.5 (5.0-8.0) Ur Specific Valentines 1.018 (1.001-1.035) Urine Protein Negative (Negative) Urine Glucose (UA) Negative (Negative) Urine Ketones Negative (Negative) Urine Blood Negative (Negative) Urine Nitrite Negative (Negative) Urine Bilirubin Negative (Negative) Urine Urobilinogen <2.0 (<2.0) mg/dL Ur Leukocyte Esterase Negative (Negative) Disposition Clinical Impression: Mechanical back pain Disposition: HOME SELF-CARE Condition: Good Instructions (If sedation given, give patient instructions): Acute Low Back Pain (ED) Prescriptions: Ibuprofen [Motrin] 800 mg PO TID #30 tab Diazepam [Valium] 5 mg PO BID #4 tab Is patient prescribed a controlled substance at d/c from ED?: No Referrals: German De La Cruz DO [Primary Care Provider] - 1-2 days
[2018-08-29 14:46] LABS: Appearance,Urine Clear (Clear); Bilirubin,Urine Negative (Negative); Blood,Urine Negative (Negative); Color,Urine Yellow; Glucose,Urine (UA) Negative (Negative); Ketones,Urine Negative (Negative); Leukocyte Esterase,Urine Negative (Negative); Nitrite,Urine Negative (Negative); PH, Urine 5.5 (5.0-8.0); Protein,Urine Negative (Negative); Specific Gravity,Urine 1.018 (1.001-1.035); Urobilinogen,Urine <2.0 mg/dL (<2.0)
--- NOTE | 2018-08-29 15:04 | XR ---
EXAMINATION TYPE: XR pelvis AP view DATE OF EXAM: 08/29/2018 COMPARISON: NONE HISTORY: Back pain TECHNIQUE: Single view FINDINGS: The pelvic ring is intact. Proximal femurs and hip joints are normal. Sacroiliac joints are normal. There are phleboliths in the pelvis. IMPRESSION: Negative exam. No fracture.
--- NOTE | 2018-08-29 15:05 | XR ---
EXAMINATION TYPE: XR lumbar spine 2 or 3V DATE OF EXAM: 08/29/2018 COMPARISON: NONE HISTORY: Back pain TECHNIQUE: 3 views FINDINGS: Lumbar vertebra have normal alignment. Posterior elements are intact. Disc spaces are fairl y normal. There is no compression fracture. Sacroiliac joints appear normal. IMPRESSION: Negative lumbar spine exam. No fracture.
[2018-08-29 15:51] VITALS: BP 107/81
== END 2018-08-29 15:51 | disposition home or self-care (01) ==
LOC: EC 13:50
DX: M54.5 Low back pain (principal); F17.200 Nicotine dependence, unspecified, uncomplicated; Z88.0 Allergy status to penicillin; Z88.5 Allergy status to narcotic agent
CPT/HCPCS: 20552; 72100; 72170; 81003; 99283

== ENCOUNTER 2022-08-10 14:05 | Emergency (ER) | payer BC, OTHER ==
[2022-08-10] MEDS ORDERED: LIDOCAINE/EPINEPHR/TETRACAINE 5 ML BOTTLE TOPICAL ONE (14:39)
[2022-08-10] MEDS ORDERED: LIDOCAINE 1% INJ 10MG/ML (30 ML VIAL-PF) SQ ONE (14:39)
--- NOTE | 2022-08-10 14:42 | ED ---
Wound/Laceration HPI - General Chief Complaint: Wound/Laceration Stated Complaint: R Finger Lac Time Seen by Provider: 08/10/22 14:25 Source: patient, RN notes reviewed Mode of arrival: ambulatory Limitations: no limitations - History of Present Illness Initial Comments: This is a 52-year-old female who presents to the emergency department for a laceration to right fifth finger. States that she cut herself on a piece of glass while doing dishes. She initially called EMS, who bandaged her up. She then called her friend who brought her to the emergency department. She took ibuprofen for pain since shortly before arrival, which was not very helpful. Tetanus vaccine is up-to-date. Denies any fevers, chills, sore throat, cough, dyspnea, chest pain, palpitations, abdominal pain, nausea, vomiting, diarrhea, back pain, or headaches. - Related Data Home Medications Medication Instructions Recorded Confirmed Multivitamin [Multivitamins Adult 2 tab PO DAILY 09/27/07/27/17 Gummies] Previous Rx's Medication Instructions Recorded Albuterol Inhaler [Ventolin Hfa 2 puff INHALATION Q4HR PRN #1 06/06/18 Inhaler] inhaler Oseltamivir [Tamiflu] 75 mg PO Q12HR #9 cap 06/06/18 Ibuprofen [Motrin] 800 mg PO TID #30 tab 08/29/18 diazePAM [Valium] 5 mg PO BID #4 tab 08/29/18 Allergies Allergy/AdvReac Type Severity Reaction Status Date / Time codeine Allergy Severe Rash/Hives Verified 08/10/22 14:20 Penicillins Allergy Rash/Hives Verified 08/10/22 14:20 Review of Systems ROS Statement: Those systems with pertinent positive or pertinent negative responses have been documented in the HPI. ROS Other: All systems not noted in ROS Statement are negative. Past Medical History Past Medical History: GERD/Reflux Additional Past Medical History / Comment(s): constipation, uterine fibroids,heavy and painful menses,urinary frequency,hx anemia. OB history: 4 previous vaginal deliveries History of Any Multi-Drug Resistant Organisms: MRSA Date of last positivie culture/infection: ?2008 MDRO Source:: lower abd scratch Past Surgical History: Hysterectomy, Orthopedic Surgery, Tubal Ligation Additional Past Surgical History / Comment(s): ORIF lt hand and wrist Past Anesthesia/Blood Transfusion Reactions: Motion Sickness Additional Past Anesthesia/Blood Transfusion Reaction / Comment(s): unk family hx, no hx blood transfusion Past Psychological History: Anxiety Smoking Status: Current every day smoker Past Alcohol Use History: Occasional Past Drug Use History: Marijuana - Past Family History Father History Unknown: Yes Additional Family Medical History / Comment(s): adopted Mother History Unknown: Yes Additional Family Medical History / Comment(s): adopted General Exam Limitations: no limitations General appearance: alert, in no apparent distress Head exam: Present: atraumatic, normocephalic, normal inspection Respiratory exam: Present: normal lung sounds bilaterally. Absent: respiratory distress, wheezes, rales, rhonchi, stridor Cardiovascular Exam: Present: regular rate, normal rhythm, normal heart sounds. Absent: systolic murmur, diastolic murmur, rubs, gallop, clicks Neurological exam: Present: alert, oriented X3, CN II-XII intact Psychiatric exam: Present: normal affect, normal mood Skin exam: Present: other (4cm flap lacaration to the lateral aspect of the right pinky finger. Minor active bleeding.) Course Vital Signs 08/10/22 08/10/22 14:18 16:38 Temperature 98 F 98.0 F Pulse Rate 79 74 Respiratory 20 18 Rate Blood Pressure 136/90 132/86 O2 Sat by Pulse 99 99 Oximetry Procedures - Laceration Laceration #1 Consent Obtained: verbal consent Indication: laceration Site: other (left pinky finger) Size (cm): 4 Description: flap Depth: simple, single layer Anesthetic Used: lidocaine 1% Anesthesia Technique: local infiltration Amount (mls): 4 Pre-repair: wound explored, irrigated extensively Type of Sutures: nylon Size of Sutures: 5-0 Number of Sutures: 6 Technique: simple, interrupted Medical Decision Making - Medical Decision Making This is a 52-year-old female who presents to the emergency department for a laceration. Was pt. sent in by a medical professional or institution? @ -No Did you speak to anyone other than the patient for history? @ -No Did you review nursing and triage notes? @ -Yes, and I agree, it is accurate with regards to the patient's symptoms. Were old charts reviewed? @ -No Differential Diagnosis? @ -Not applicable EKG interpreted by me (3pts min.)? @ -Not obtained X-rays interpreted by me (1pt min.)? @ -Not obtained CT interpreted by me (1pt min.)? @ -Not obtained U/S interpreted by me (1pt. min.)? @ -Not obtained What testing was considered but not performed? (CT, X-rays, U/S, labs)? Why? @ -None What meds were considered but not given? Why? @ -None Did you discuss the management of the patient with other professionals? @ -No Did you reconcile home meds? @ -No Was smoking cessation discussed for >3mins.? @ -No Was critical care preformed (if so, how long)? @ -No Were there social determinants of health that impacted care today? How? (Homelessness, low income, unemployed, alcoholism, drug addiction, transportation, low edu. Level, literacy, decrease access to med. care, intermediate, rehab)? @ -No Was there de-escalation of care discussed even if they declined? (Discuss DNR or withdrawal of care, Hospice)? @ -No What co-morbidities impacted this encounter? (DM, HTN, Smoking, COPD, CAD, Cancer, CVA, Hep., AIDS, mental health diagnosis, sleep apnea, morbid obesity)? @ -None Was patient admitted / discharged? @ -Discharged. LET was initially used to control the bleeding and ease the discomfort. Sutures were placed. Her tetanus vaccine is up-to-date. Pain well-controlled with tramadol in the emergency department. She is otherwise instructed to alternate with ibuprofen and Tylenol for pain relief and to return to the emergency department in 5-7 days for suture removal. Undiagnosed new problem with uncertain prognosis? @ -None Drug Therapy requiring intensive monitoring for toxicity (Heparin, Nitro, Insulin, Cardizem)? @ -None Were any procedures done? @ -None Diagnosis/symptom? @ -Laceration Acute, or Chronic, or Acute on Chronic? @ -Acute Uncomplicated (without systemic symptoms) or Complicated (systemic symptoms)? @ -Uncomplicated Side effects of treatment? @ -None Exacerbation, Progression, or Severe Exacerbation] @ -Not applicable Poses a threat to life or bodily function? @ -No Return precautions reviewed in depth, the patient is instructed to return to the emergency department with any new, worsening, or concerning symptoms. Patient verbalized understanding. This case was discussed in detail with the attending ED physician, Dr. Schultz. Presentation, findings, and treatment plan discussed in detail as well. Disposition Clinical Impression: Laceration Disposition: HOME SELF-CARE Instructions (If sedation given, give patient instructions): Care For Your Stitches (ED) Additional Instructions: Return to the emergency department with any new, worsening, or concerning symptoms, and in 5-7 days for removal of the stitches. Alternate with ibuprofen and Tylenol as needed for pain relief. Follow up with your primary care provider in 1-2 days. Is patient prescribed a controlled substance at d/c from ED?: No Referrals: None,Stated [Primary Care Provider] - 1-2 days
[2022-08-10] MEDS ORDERED: traMADol 50 MG TAB PO STA (14:48)
[2022-08-10] MEDS ORDERED: traMADol 50 MG STARTER PACK 3 TAB BTL PO STA (16:23)
[2022-08-10] MEDS ORDERED: IBUPROFEN 600 MG STARTER PACK 4 TAB BTL PO STA (16:23)
[2022-08-10 16:40] VITALS: BP 132/86; PULSE 74; RESP 18; TEMP 98
== END 2022-08-10 16:40 | disposition home or self-care (01) ==
LOC: EC 14:05
DX: S61.219A Laceration without foreign body of unspecified finger without damage to nail, initial encounter (principal); F41.9 Anxiety disorder, unspecified; F17.200 Nicotine dependence, unspecified, uncomplicated; F12.90 Cannabis use, unspecified, uncomplicated; Z79.899 Other long term (current) drug therapy; Z88.5 Allergy status to narcotic agent; Z88.0 Allergy status to penicillin; W25.XXXA Contact with sharp glass, initial encounter; Y93.G1 Activity, food preparation and clean up
CPT/HCPCS: 99283; 12002; J2001

== ENCOUNTER 2022-09-25 10:43 | Emergency (ER) | payer BC, OTHER ==
[2022-09-25 10:58] VITALS: RESP 16
[2022-09-25] MEDS ORDERED: methylPREDNISolone ACETATE 80 MG/ML 1 ML VIAL IM STA (11:13)
[2022-09-25] MEDS ORDERED: ORPHENADRINE 30 MG/ML 2 ML VIAL IM STA (11:13)
--- NOTE | 2022-09-25 11:13 | ED ---
Back Pain HPI - General Chief Complaint: Back Pain/Injury Stated Complaint: Lower Back Pain Time Seen by Provider: 09/25/22 10:59 Source: patient, RN notes reviewed Limitations: no limitations - History of Present Illness Initial Comments: Patient is a 52-year-old female presenting to the emergency room with an increase in lower back pain over the last 2 days. She reports she has been more active than she usually is that she has help caring for a friend. She states that she typically has some low back pain but the pain has not been this severe for quite some time. She states that last time her back pain became the severe she eventually depth to cut down her right leg however she denies any sciatica at this time. She denies any trauma or range of motion impairment. She denies any weakness, bowel or bladder incontinence, saddle paresthesia or other red flag symptoms for cauda equina. She reports that she responds well to a steroid injection in that last for some time; this injection is not placed localized. She reports taking Tylenol and Motrin at home with no relief. She denies any other complaints or concerns at this time. She is a past medical hi story in addition to her chronic back pain significant for GERD and constipation. - Related Data Home Medications Medication Instructions Recorded Confirmed Multivitamin [Multivitamins Adult 2 tab PO DAILY 09/28/15 07/27/17 Gummies] Previous Rx's Medication Instructions Recorded Albuterol Inhaler [Ventolin Hfa 2 puff INHALATION Q4HR PRN #1 06/06/18 Inhaler] inhaler Oseltamivir [Tamiflu] 75 mg PO Q12HR #9 cap 06/06/18 Ibuprofen [Motrin] 800 mg PO TID #30 tab 08/29/18 diazePAM [Valium] 5 mg PO BID #4 tab 08/29/18 Cyclobenzaprine HCl 10 mg PO TID PRN 7 Days #21 tab 09/25/22 methylPREDNISolone Dose Pack 4 mg PO DIRECTED #21 tab 09/25/22 [Medrol Dose Pack] Allergies Allergy/AdvReac Type Severity Reaction Status Date / Time codeine Allergy Severe Rash/Hives Verified 09/25/22 10:55 Penicillins Allergy Rash/Hives Verified 09/25/22 10:55 Review of Systems ROS Statement: Those systems with pertinent positive or pertinent negative responses have been documented in the HPI. ROS Other: All systems not noted in ROS Statement are negative. Past Medical History Past Medical History: GERD/Reflux Additional Past Medical History / Comment(s): constipation, uterine fibroids,heavy and painful menses,urinary frequency,hx anemia. OB history: 4 previous vaginal deliveries History of Any Multi-Drug Resistant Organisms: MRSA Date of last positivie culture/infection: ?2008 MDRO Source:: lower abd scratch Past Surgical History: Hysterectomy, Orthopedic Surgery, Tubal Ligation Additional Past Surgical History / Comment(s): ORIF lt hand and wrist Past Anesthesia/Blood Transfusion Reactions: Motion Sickness Additional Past Anesthesia/Blood Transfusion Reaction / Comment(s): unk family hx, no hx blood transfusion Past Psychological History: Anxiety Smoking Status: Current every day smoker Past Alcohol Use History: Occasional Past Drug Use History: Marijuana - Past Family History Father History Unknown: Yes Additional Family Medical History / Comment(s): adopted Mother History Unknown: Yes Additional Family Medical History / Comment(s): adopted General Exam Limitations: no limitations General appearance: alert, in no apparent distress Head exam: Present: atraumatic, normocephalic, normal inspection Eye exam: Present: normal appearance, PERRL, EOMI. Absent: scleral icterus, conjunctival injection, periorbital swelling ENT exam: Present: normal exam, mucous membranes moist Neck exam: Present: normal inspection, full ROM Respiratory exam: Absent: respiratory distress, accessory muscle use Cardiovascular Exam: Present: regular rate GI/Abdominal exam: Absent: tenderness Extremities exam: Present: normal inspection, full ROM. Absent: pedal edema, joint swelling Back exam: Present: normal inspection, full ROM, tenderness (generalized lower). Absent: muscle spasm, paraspinal tenderness, vertebral tenderness Neurological exam: Present: alert, oriented X3, CN II-XII intact Psychiatric exam: Present: normal affect, normal mood Skin exam: Present: warm, dry, intact, normal color. Absent: rash Course Vital Signs 09/25/22 10:55 Temperature 97.9 F Pulse Rate 85 Respiratory 16 Rate Blood Pressure 124/93 O2 Sat by Pulse 97 Oximetry Medical Decision Making - Medical Decision Making Was pt. sent in by a medical professional or institution (, PA, [employer], urgent care, hospital, or snf...) When possible be specific @ -[No] Did you speak to anyone other than the patient for history (EMS, parent, family, police, friend...)? What history was obtained from this source @ -[No] Did you review nursing and triage notes (agree or disagree)? Why? @ -[I reviewed and agree with nursing and triage notes] Were old charts reviewed (outside hosp., previous admission, EMS record, old EKG, old radiological studies, urgent care reports/EKG's, snf records)? Report findings @ -[No old charts were reviewed] Differential Diagnosis (chest pain, altered mental status, abdominal pain women, abdominal pain men, vaginal bleeding, weakness, fever, dyspnea, syncope, headache, dizziness, GI bleed, back pain, seizure, CVA, palpatations, mental health, musculoskeletal)? @ -Differential Musculoskeletal Muscular strain, contusion, ligament sprain, fracture, arthritis, septic arthritis, bursitis, cellulitis, muscle spasm, nerve compression, DVT, arterial occlusion, herpes zoster, electrolyte abnormality, tumor.... This is not meant to be in all inclusive list EKG interpreted by me (3pts min.). @ -[None done] X-rays interpreted by me (1pt min.). @ -[None done] CT interpreted by me (1pt min.). @ -[None done] U/S interpreted by me (1pt. min.). @ -[None done] What testing was considered but not performed or refused? (CT, X-rays, U/S, labs)? Why? @ -Lumbar imaging considered but deferred due to chronic back pain without any red flag symptoms for cauda equina or trauma. What meds were considered but not given or refused? Why? @ -[None] Did you discuss the management of the patient with other professionals (professionals i.e. , PA, [employer], lab, RT, psych nurse, psychotherapist social worker, financial planning adviser, teacher, chemistry technical officer, cyanide case hardener)? Give summary @ -[No] Was smoking cessation discussed for >3mins.? @ -[No] Was critical care preformed (if so, how long)? @ -[No] Were there social determinants of health that impacted care today? How? (Homelessness, low income, unemployed, alcoholism, drug addiction, transportation, low edu. Level, literacy, decrease access to med. care, long-term, rehab)? @ -[No] Was there de-escalation of care discussed even if they declined (Discuss DNR or withdrawal of care, Hospice)? DNR status @ -[No] What co-morbidities impacted this encounter? (DM, HTN, Smoking, COPD, CAD, Cancer, CVA, ARF, Chemo, Hep., AIDS, mental health diagnosis, sleep apnea, morbid obesity)? @ -Chronic back pain Was patient admitted / discharged? Hospital course, mention meds given and route, prescriptions, significant lab abnormalities, going to OR and other pertinent info. @ -2-year-old female presenting to the emergency room with acute on chronic back pain ongoing for 2 days without any trauma or reflux symptoms for cauda equina. Previous sciatica none at this time. Responds well to steroid injection. Will give Depo-Medrol along with Norflex and monitor response. No indication for diagnostic imaging. Good response to Depo-Medrol and Norflex. Will provide Medrol Dosepak and Flexeril for utilization at home. Low back pain exercises and restrictions discussed. Advised no other NSAIDs while taking Medrol dose pack. Encouraged follow-up with primary care provider. Questions and concerns answered. Return parameters to the emergency room discussed. Will discharge home in stable condition on Medrol Dosepak and Flexeril to utilize for acute on chronic back pain advising follow-up with primary care provider. Undiagnosed new problem with uncertain prognosis? @ -[No] Drug Therapy requiring intensive monitoring for toxicity (Heparin, Nitro, Insulin, Cardizem)? @ -[No] Were any procedures done? @ -[No] Diagnosis/symptom? @ -Low back pain Acute, or Chronic, or Acute on Chronic? @ -Acute on chronic Uncomplicated (without systemic symptoms) or Complicated (systemic symptoms)? @ -Uncomplicated Side effects of treatment? @ -[No] Exacerbation, Progression, or Severe Exacerbation? @ -Exacerbation Poses a threat to life or bodily function? How? (Chest pain, USA, [place], pneumonia, PE, COPD, DKA, ARF, appy, cholecystitis, CVA, Diverticulitis, Homicidal, Suicidal, threat to staff... and all critical care pts) @ -[No] Case discussed with Dr. Finn. Disposition Clinical Impression: Low back pain Disposition: HOME SELF-CARE Condition: Stable Instructions (If sedation given, give patient instructions): Acute Low Back Pain (ED), Lower Back Exercises (ED) Additional Instructions: Complete Medrol Dosepak as prescribed. Do not take other NSAIDs will taking Medrol dosepak. Utilize muscle relaxer as needed for pain as well. May take Tylenol for pain as needed will taking Medrol dosepak. Gentle range of motion encouraged. Avoid bed rest and heavy lifting. Please follow-up with your primary care provider. Please return to the Emergency Department if symptoms worsen or any other concerns. Prescriptions: Cyclobenzaprine HCl 10 mg PO TID PRN 7 Days #21 tab PRN Reason: Spasms methylPREDNISolone Dose Pack [Medrol Dose Pack] 4 mg PO DIRECTED #21 tab Is patient prescribed a controlled substance at d/c from ED?: No Referrals: None,Stated [Primary Care Provider] - 1-2 days Time of Disposition: 12:28
[2022-09-25 12:45] VITALS: BP 120/79; PULSE 80; TEMP 98
== END 2022-09-25 12:45 | disposition home or self-care (01) ==
LOC: EC 10:43
DX: M54.50 Low back pain, unspecified (principal); F17.200 Nicotine dependence, unspecified, uncomplicated; F12.90 Cannabis use, unspecified, uncomplicated; Z88.0 Allergy status to penicillin; Z88.5 Allergy status to narcotic agent
CPT/HCPCS: 99283; 96372 ×2; J1040; J2360

== ENCOUNTER 2022-10-31 19:59 | Emergency (ER) | payer BC, OTHER ==
[2022-10-31 20:03] VITALS: TEMP 98
[2022-10-31] MEDS ORDERED: KETOROLAC 15 MG/ML 1 ML VIAL IM STA (20:41)
[2022-10-31] MEDS ORDERED: PHENAZOPYRIDINE 200 MG TAB PO STA (20:41)
[2022-10-31 20:42] LABS: Appearance,Urine Cloudy (Clear); Bacteria,Urine Occasional /hpf; Bilirubin,Urine Negative (Negative); Blood,Urine Negative (Negative); Glucose,Urine (UA) Negative (Negative); Ketones,Urine Trace (Negative); Leukocyte Esterase,Urine Large (Negative); Mucus,Urine Many /hpf; Nitrite,Urine Negative (Negative); PH, Urine 5.5 (5.0-8.0); Protein,Urine 1+ (Negative); RBC,Urine 20 /hpf (0-5); Squamous Epithelial Cell,Urine 7 /hpf (0-4); WBC,Urine >182 /hpf (0-5)
[2022-10-31 20:44] LABS: Color,Urine Dark Yellow
[2022-10-31] MEDS ORDERED: NITROFURANTOIN MONOHYD/M-CRYST 100 MG CAP PO STA (21:20)
--- NOTE | 2022-10-31 21:20 | ED ---
Female Urogenital HPI - General Chief complaint: Urogenital Stated complaint: UTI Time Seen by Provider: 10/31/22 20:20 Source: patient Mode of arrival: ambulatory Limitations: no limitations - History of Present Illness Initial comments: Patient is a 52-year-old female who presents to the emergency department for urinary symptoms. Patient reports burning with urination and mild left-sided pain for 1 day. She has urinary frequency and urgency. No fever, chills, nausea, vomiting. No blood in the urine. Patient has history of urinary tract infections states this feels similar. No history of kidney infection or stone. - Related Data Home Medications Medication Instructions Recorded Confirmed Multivitamin [Multivitamins Adult 2 tab PO DAILY 09/28/15 07/27/17 Gummies] Previous Rx's Medication Instructions Recorded Albuterol Inhaler [Ventolin Hfa 2 puff INHALATION Q4HR PRN #1 06/06/18 Inhaler] inhaler Oseltamivir [Tamiflu] 75 mg PO Q12HR #9 cap 06/06/18 Ibuprofen [Motrin] 800 mg PO TID #30 tab 08/29/18 diazePAM [Valium] 5 mg PO BID #4 tab 08/29/18 Cyclobenzaprine HCl 10 mg PO TID PRN 7 Days #21 tab 09/25/22 methylPREDNISolone Dose Pack 4 mg PO DIRECTED #21 tab 09/25/22 [Medrol Dose Pack] Ibuprofen [Motrin] 400 mg PO Q6HR PRN #30 tab 10/31/22 Nitrofurantoin Monohyd/M-Cryst 100 mg PO Q12HR #10 cap 10/31/22 [Macrobid] Phenazopyridine [Pyridium] 200 mg PO TID #6 tablet 10/31/22 Allergies Allergy/AdvReac Type Severity Reaction Status Date / Time codeine Allergy Severe Rash/Hives Verified 10/31/22 20:03 Penicillins Allergy Rash/Hives Verified 10/31/22 20:03 Review of Systems ROS Statement: Those systems with pertinent positive or pertinent negative responses have been documented in the HPI. ROS Other: All systems not noted in ROS Statement are negative. Past Medical History Past Medical History: GERD/Reflux Additional Past Medical History / Comment(s): constipation, uterine fibroids,heavy and painful menses,urinary frequency,hx anemia. OB history: 4 previous vaginal deliveries History of Any Multi-Drug Resistant Organisms: MRSA Date of last positivie culture/infection: ?2008 MDRO Source:: lower abd scratch Past Surgical History: Hysterectomy, Orthopedic Surgery, Tubal Ligation Additional Past Surgical History / Comment(s): ORIF lt hand and wrist Past Anesthesia/Blood Transfusion Reactions: Motion Sickness Additional Past Anesthesia/Blood Transfusion Reaction / Comment(s): unk family hx, no hx blood transfusion Past Psychological History: Anxiety Smoking Status: Current every day smoker Past Alcohol Use History: Occasional Past Drug Use History: Marijuana - Past Family History Father History Unknown: Yes Additional Family Medical History / Comment(s): adopted Mother History Unknown: Yes Additional Family Medical History / Comment(s): adopted General Exam Limitations: no limitations General appearance: alert Respiratory exam: Present: normal lung sounds bilaterally. Absent: respiratory distress, wheezes, rales, rhonchi, stridor Cardiovascular Exam: Present: regular rate, normal rhythm, normal heart sounds. Absent: systolic murmur, diastolic murmur, rubs, gallop, clicks GI/Abdominal exam: Present: soft, normal bowel sounds. Absent: distended, tenderness, guarding, rebound, rigid Back exam: Absent: CVA tenderness (R), CVA tenderness (L) Neurological exam: Present: alert Psychiatric exam: Present: normal affect, normal mood Skin exam: Present: warm, dry, intact, normal color. Absent: rash Course Vital Signs 10/31/22 10/31/22 20:00 21:38 Temperature 98.0 F Pulse Rate 98 75 Respiratory 20 18 Rate Blood Pressure 126/91 112/79 O2 Sat by Pulse 99 96 Oximetry Medical Decision Making - Medical Decision Making Was pt. sent in by a medical professional or institution (, PA, MEDICAL OFFICER, urgent care, hospital, or custodial...) When possible be specific @ -No Did you speak to anyone other than the patient for history (EMS, parent, family, police, friend...)? What history was obtained from this source @ -No Did you review nursing and triage notes (agree or disagree)? Why? @ -I reviewed and agree with nursing and triage notes Were old charts reviewed (outside hosp., previous admission, EMS record, old EKG, old radiological studies, urgent care reports/EKG's, custodial records)? Report findings @ -No old charts were reviewed Differential Diagnosis (chest pain, altered mental status, abdominal pain women, abdominal pain men, vaginal bleeding, weakness, fever, dyspnea, syncope, headache, dizziness, GI bleed, back pain, seizure, CVA, palpatations, mental health)? @ -Differential Abdominal Pain Women: Appendicitis, Cholecystitis, diverticulosis, ischemic bowel, pancreatitis, hepatitis, UTI, gastroenteritis, AAA, incarcerated hernia, bowel obstruction, constipation, inflammatory bowel, hepatitis, peptic ulcer disease, splenic infarction, perforated viscus, vulvitis, ovarian torsion, PID, kidney stone, placenta abruption, this is not meant to be an all-inclusive list EKG interpreted by me (3pts min.). @ -As above X-rays interpreted by me (1pt min.). @ -None done CT interpreted by me (1pt min.). @ -None done U/S interpreted by me (1pt. min.). @ -None done What testing was considered but not performed or refused? (CT, X-rays, U/S, labs)? Why? @ -None What meds were considered but not given or refused? Why? @ -None Did you discuss the management of the patient with other professionals (professionals i.e. , PA, MEDICAL OFFICER, lab, RT, psych nurse, school social worker, field operations farm manager, teacher, nuclear security officer, telehealth case manager)? Give summary @ -No Was smoking cessation discussed for >3mins.? @ -No Was critical care preformed (if so, how long)? @ -No Were there social determinants of health that impacted care today? How? (Homelessness, low income, unemployed, alcoholism, drug addiction, transportation, low edu. Level, literacy, decrease access to med. care, assisted, rehab)? @ -No Was there de-escalation of care discussed even if they declined (Discuss DNR or withdrawal of care, Hospice)? DNR status @ -No What co-morbidities impacted this encounter? (DM, HTN, Smoking, COPD, CAD, Cancer, CVA, ARF, Chemo, Hep., AIDS, mental health diagnosis, sleep apnea, morbid obesity)? @ -None Was patient admitted / discharged? Hospital course, mention meds given and route, prescriptions, significant lab abnormalities, going to OR and other pertinent info. @ -Patient presenting with dysuria. She has minimal left flank pain no CVA tenderness. The abdomen is soft and nontender. No systemic symptoms or signs. Urinalysis consistent with infection. Patient will be discharged with Macrobid for UTI. We discussed return parameters Undiagnosed new problem with uncertain prognosis? @ -No Drug Therapy requiring intensive monitoring for toxicity (Heparin, Nitro, Insulin, Cardizem)? @ -No Were any procedures done? @ -No Diagnosis/symptom? @ -Urinary tract infection Acute, or Chronic, or Acute on Chronic? @ -Acute Uncomplicated (without systemic symptoms) or Complicated (systemic symptoms)? @Uncomplicated Side effects of treatment? @ -No Exacerbation, Progression, or Severe Exacerbation? @ -No Poses a threat to life or bodily function? How? (Chest pain, USA, [place], pneumonia, PE, COPD, DKA, ARF, appy, cholecystitis, CVA, Diverticulitis, Homicidal, Suicidal, threat to staff... and all critical care pts) @ -No Dr. Candelaria is my attending - Lab Data Lab Results 10/31/22 Range/Units 20:17 Urine Color Dark Yellow Urine Appearance Cloudy H (Clear) Urine pH 5.5 (5.0-8.0) Ur Specific [place] 1.030 (1.001-1.035) Urine Protein 1+ H (Negative) Urine Glucose (UA) Negative (Negative) Urine Ketones Trace H (Negative) Urine Blood Negative (Negative) Urine Nitrite Negative (Negative) Urine Bilirubin Negative (Negative) Urine Urobilinogen 3.0 (<2.0) mg/dL Ur Leukocyte Esterase Large H (Negative) Urine RBC 20 H (0-5) /hpf Urine WBC >182 H (0-5) /hpf Ur Squamous Epith Cells 7 H (0-4) /hpf Urine Bacteria Occasional H (None) /hpf Urine Mucus Many H (None) /hpf Disposition Clinical Impression: Urinary tract infection Disposition: HOME SELF-CARE Condition: Good Instructions (If sedation given, give patient instructions): Urinary Tract Infection in Women (ED) Additional Instructions: Increase water intake.Take medication as directed. Please follow-up with your primary care provider in 1-2 days. Return to the emergency department if you experience new, concerning, or worsening symptoms. Prescriptions: Nitrofurantoin Monohyd/M-Cryst [Macrobid] 100 mg PO Q12HR #10 cap Ibuprofen [Motrin] 400 mg PO Q6HR PRN #30 tab PRN Reason: Pain Phenazopyridine [Pyridium] 200 mg PO TID #6 tablet Is patient prescribed a controlled substance at d/c from ED?: No Referrals: None,Stated [Primary Care Provider] - 1-2 days
[2022-10-31 21:45] VITALS: BP 112/79; PULSE 75; RESP 18
== END 2022-10-31 21:39 | disposition home or self-care (01) ==
LOC: EC 19:59
DX: N39.0 Urinary tract infection, site not specified (principal); F17.200 Nicotine dependence, unspecified, uncomplicated; F12.90 Cannabis use, unspecified, uncomplicated; Z86.59 Personal history of other mental and behavioral disorders; Z88.5 Allergy status to narcotic agent; Z88.0 Allergy status to penicillin
CPT/HCPCS: 81001; 99283; 96372; J1885